=== PATIENT | male | born 1950 | race Caucasian/White ===

== ENCOUNTER 2021-12-17 12:50 | Observation (INO) ==
[~2021-12-17 12:50] MED LIST: Buffered Lidocaine 1% SYRIN 1 ml INTRADERM ONE; Famotidine IV 10 MG/ML 2 ml VIAL (20 mg) IV ONE; Lactated Ringers 1000 ml BAG 1,000 ML IV SCH
[2021-12-17] MEDS ORDERED: fentaNYL 250 mcg/5 ml 50 MCG/ML 5 ml VIAL (250 MCG) ONE (13:10)
[2021-12-17] MEDS ORDERED: Midazolam 2 mg/2 ml VIAL 1 mg/ml 2 ml VIAL (2 mg) ONE (13:10)
[2021-12-17] MEDS ORDERED: Lidocaine 2% PF 5 ML VIAL ONE (13:11)
[2021-12-17] MEDS ORDERED: Lidocaine 1% w EPI 1:200,000 SDV 30 ML VIAL ONE (13:11)
[2021-12-17] MEDS ORDERED: Thrombin 5,000 UNITS 1 APPLIC KIT - topical use - TOPICAL ONE (13:11)
[2021-12-17] MEDS ORDERED: Propofol 10 MG/ML 20 ML BTL ONE (13:11)
[2021-12-17] MEDS ORDERED: Gelfoam Sponge SIZE 100 SPONGE ONE (13:12)
[2021-12-17] MEDS ORDERED: ceFAZolin 2 GM PREMIX 2 GM/50 ML BAG ONE (13:38)
[2021-12-17] MEDS ORDERED: Rocuronium 50 mg VIAL 10 mg/ml 5 ml VIAL (50 mg) ONE (13:40)
[2021-12-17] MEDS ORDERED: Dexamethasone IV 4 MG/ML VIAL 1 ml VIAL ONE (14:34)
[2021-12-17] MEDS ORDERED: Ondansetron 4 mg VIAL 2 MG/ML 2 ml VIAL ONE (14:34)
[2021-12-17] MEDS ORDERED: Acetaminophen IV 1 GM/100ML 1,000 MG/100 ML BAG IV ONE (14:59)
[2021-12-17] MEDS ORDERED: Phenylephrine 40 mcg/mL 10mL (400mcg) SYRINGE ONE (15:01)
[2021-12-17] MEDS ORDERED: Naloxone 0.4 mg VIAL 0.4 mg/ml 1 ml VIAL IV PRN (15:38)
[2021-12-17] MEDS ORDERED: HYDROmorphone 1 MG/1 ML SYRINGE IV PRN (15:38)
[2021-12-17] MEDS ORDERED: Ondansetron 4 mg VIAL 2 MG/ML 2 ml VIAL IV PRN ×2 (15:38→15:58)
[2021-12-17] MEDS ORDERED: fentaNYL 100 mcg/2 ml 50 MCG/ML VIAL IV PRN (15:38)
[2021-12-17] MEDS ORDERED: Magnesium Hydroxide LIQ 30 ML UDC PO PRN (15:58)
[2021-12-17] MEDS ORDERED: Lactated Ringers 1000 ml BAG 1,000 ML IV SCH (16:00)
[2021-12-17] MEDS ORDERED: fentaNYL 100 mcg/2 ml 50 MCG/ML VIAL ONE (16:24)
[2021-12-17] MEDS ORDERED: HYDROmorphone 1 MG/1 ML SYRINGE ONE (16:41)
[2021-12-17] MEDS: HYDROcodone/ACETAMIN 5/325 mg TAB PO PRN (17:47)
[2021-12-18] MEDS: HYDROcodone/ACETAMIN 5/325 mg TAB PO PRN (07:21)
== END 2021-12-18 11:20 | disposition home or self-care (01) ==
LOC: OR 12:50 → SSU 12:50
PROVIDERS: ADMIT Neurological Surgery; ATTEND Neurological Surgery

== ENCOUNTER 2022-01-13 21:18 | Inpatient (IN) ==
[2022-01-13] MEDS ORDERED: Morphine 4 MG/ML VIAL (1 ml) IV ONE ×3 (21:41→23:56)
[2022-01-13 21:53] LABS: ABS Eosinophils 0.2 10^3/ul (0-0.6); ABS Lymphocytes 0.8 10^3/ul (1.0-4.8); ABS Monocytes 0.9 10^3/ul (0-0.8); ABS Neutrophils 7.9 10^3/ul (1.5-7.7); Eosinophil % 2.2 %; Hematocrit 42 % (42-52); Hemoglobin 14.1 g/dL (14.0-18.0); Lymphocyte % 8.2 %; Mean Corpuscular HGB Conc 34 g/dL (31-36); Mean Corpuscular Hemoglobin 35 pg (27-31); Mean Corpuscular Volume 104 fL (80-94); Mean Platelet Volume 6.7 fL (7.4-10.4); Platelet Count 289 10^3/uL (150-450); Red Blood Count 4.04 10^6 /uL (4.18-5.48); Red Cell Distribution Width 14 % (10-15); White Blood Count 9.8 10^3/uL (3.5-10.8)
[2022-01-13] MEDS ORDERED: Ondansetron 4 mg VIAL 2 MG/ML 2 ml VIAL IV ONE (21:55)
[2022-01-13] MEDS ORDERED: Morphine 4 MG/ML VIAL (1 ml) ONE (21:56)
[2022-01-13] MEDS ORDERED: Ondansetron 4 mg VIAL 2 MG/ML 2 ml VIAL ONE (21:56)
[2022-01-13 21:59] LABS: Activated Partial Thrombo Time 29.6 seconds (26.0-38.0); INR 0.97 (0.89-1.11)
[2022-01-13 22:23] LABS: Albumin 4.5 g/dL (3.2-5.2); Albumin/Globulin Ratio 1.6 (1-3); C Reactive Protein 26.3 mg/L (<8.01); Calcium 9.4 mg/dL (8.6-10.3); Globulin 2.8 g/dL (2-4); Potassium 4.1 mmol/L (3.5-5.0); Total Bilirubin 0.6 mg/dL (0.2-1.0); Total Protein 7.3 g/dL (6.4-8.9); eGFR CKD-EPI 98.7 (>60)
[2022-01-13] MEDS ORDERED: Gadoteridol (CONTRAST) 279.3 MG/ML 10 ML IV ONE (22:25)
[2022-01-13 23:23] LABS: Urine Appearance Clear; Urine Bilirubin Negative (Negative); Urine Blood Negative (Negative); Urine Color Yellow; Urine Glucose 3+(>=500 mg/dL) (Negative); Urine Ketones Trace (Negative); Urine Nitrite Negative (Negative); Urine Protein Negative (Negative); Urine Specific Gravity 1.018 (1.002-1.030); Urine Urobilinogen Negative (Negative)
[2022-01-13] MEDS ORDERED: Lactated Ringers 1000 ml BAG 1,000 ML IV ONE (23:56)
[2022-01-14] MEDS ORDERED: Propofol 10 MG/ML 20 ML BTL IV SCH
[2022-01-14] MEDS ORDERED: Midazolam 2 mg/2 ml VIAL 1 mg/ml 2 ml VIAL (2 mg) IV SLOW PU SCH
[2022-01-14] MEDS ORDERED: Thrombin 5,000 UNITS 1 APPLIC KIT - topical use - TOPICAL SCH
[2022-01-14] MEDS ORDERED: Lidocaine 2% PF 5 ML VIAL IV SCH
[2022-01-14] MEDS ORDERED: Rocuronium 50 mg VIAL 10 mg/ml 5 ml VIAL (50 mg) IV SCH
[2022-01-14] MEDS ORDERED: fentaNYL 250 mcg/5 ml 50 MCG/ML 5 ml VIAL (250 MCG) IV SCH
[2022-01-14] MEDS ORDERED: ceFAZolin VIAL VIAL IVPB SCH ×2
[2022-01-14] MEDS ORDERED: Ondansetron 4 mg VIAL 2 MG/ML 2 ml VIAL IV SCH
[2022-01-14] MEDS ORDERED: Lidocaine 2% w EPI 1:100,000 20 ML MDV VIAL INJ SCH
[2022-01-14] MEDS ORDERED: Gelfoam Sponge SIZE 100 SPONGE TOPICAL SCH
[2022-01-14] MEDS ORDERED: Dexamethasone IV 4 MG/ML VIAL 1 ml VIAL IV SLOW PU SCH
[2022-01-14] MEDS ORDERED: Vancomycin 1,500 MG in NS 0.9% 250 ml 250 ML IVPB ONE (00:02)
[2022-01-14] MEDS ORDERED: Ondansetron 4 mg VIAL 2 MG/ML 2 ml VIAL IV PRN (00:16)
[2022-01-14] MEDS ORDERED: Dextrose 50% Syringe 50 ml 25 GM/50 ML SYRINGE IV PUSH PRN (01:28)
[2022-01-14] MEDS ORDERED: cefTRIAXone 2 gm/50 mL D5W 2 GM/50 ML BAG IV SCH (01:30)
[2022-01-14] MEDS: fentaNYL 100 mcg/2 ml 50 MCG/ML VIAL IV SLOW PU PRN ×2 (02:22→18:25)
[2022-01-14] MEDS: ceFAZolin 2 GM in NS PREMIX 2 GM/100 ML BAG IVPB SCH ×2 (15:31→18:26)
[2022-01-15] MEDS: ceFAZolin 2 GM in NS PREMIX 2 GM/100 ML BAG IVPB SCH ×3 (01:46→18:14)
[2022-01-15 07:02] LABS: ABS Lymphocytes 1.4 10^3/ul (1.0-4.8); ABS Monocytes 0.8 10^3/ul (0-0.8); ABS Neutrophils 5.5 10^3/ul (1.5-7.7); Eosinophil % 0.6 %; Hematocrit 33 % (42-52); Hemoglobin 11.2 g/dL (14.0-18.0); Mean Corpuscular HGB Conc 34 g/dL (31-36); Mean Corpuscular Hemoglobin 36 pg (27-31); Mean Corpuscular Volume 105 fL (80-94); Platelet Count 248 10^3/uL (150-450); Red Blood Count 3.14 10^6 /uL (4.18-5.48); Red Cell Distribution Width 14 % (10-15); White Blood Count 7.8 10^3/uL (3.5-10.8)
[2022-01-15 07:20] LABS: Calcium 8.8 mg/dL (8.6-10.3); eGFR CKD-EPI 94.5 (>60)
[2022-01-15] MEDS: fentaNYL 100 mcg/2 ml 50 MCG/ML VIAL IV SLOW PU PRN (16:37)
[2022-01-15] MEDS ORDERED: Polyethylene Glycol 3350 17 GM PACKET PO PRN (17:03)
[2022-01-15] MEDS ORDERED: Magnesium Hydroxide LIQ 30 ML UDC PO PRN (17:03)
[2022-01-15] MEDS ORDERED: Senna TAB 8.6 mg TAB PO PRN (17:03)
[2022-01-16] MEDS: ceFAZolin 2 GM in NS PREMIX 2 GM/100 ML BAG IVPB SCH ×3 (02:19→18:33)
[2022-01-17] MEDS: ceFAZolin 2 GM in NS PREMIX 2 GM/100 ML BAG IVPB SCH ×3 (00:53→18:04)
[2022-01-17 05:56] LABS: ABS Basophils 0.1 10^3/ul (0-0.2); ABS Eosinophils 0.3 10^3/ul (0-0.6); ABS Lymphocytes 1.4 10^3/ul (1.0-4.8); ABS Monocytes 0.5 10^3/ul (0-0.8); ABS Neutrophils 4.3 10^3/ul (1.5-7.7); Eosinophil % 4.6 %; Hematocrit 34 % (42-52); Hemoglobin 11.7 g/dL (14.0-18.0); Lymphocyte % 20.9 %; Mean Corpuscular HGB Conc 34 g/dL (31-36); Mean Corpuscular Hemoglobin 35 pg (27-31); Mean Corpuscular Volume 103 fL (80-94); Mean Platelet Volume 6.8 fL (7.4-10.4); Nucleated Red Blood Cells % 0.1; Platelet Count 231 10^3/uL (150-450); Red Cell Distribution Width 14 % (10-15); White Blood Count 6.5 10^3/uL (3.5-10.8)
[2022-01-17 06:30] LABS: C Reactive Protein 26.8 mg/L (<8.01); Potassium 4.4 mmol/L (3.5-5.0); eGFR CKD-EPI 95.9 (>60)
[2022-01-18] MEDS: ceFAZolin 2 GM in NS PREMIX 2 GM/100 ML BAG IVPB SCH ×3 (03:05→17:05)
[2022-01-19] MEDS: ceFAZolin 2 GM in NS PREMIX 2 GM/100 ML BAG IVPB SCH (03:12)
[2022-01-19 11:13] VITALS: BP 128/84
== END 2022-01-19 12:41 | disposition home or self-care (01) | DRG 857 ==
LOC: ED 21:18 → EDHOLD 01-14 00:16 → SUATTDRO 01-14 00:16 → MED 01-14 15:22
PROVIDERS: ADMIT Student in an Organized Health Care Education/Training Program; ATTEND Hospitalist
PROC: O.NEI&D (2022-01-14 18:30)

== ENCOUNTER 2023-07-15 06:33 | Inpatient (IN) ==
[2023-07-15 06:58] LABS: ABS Basophils 0.1 10^3/uL (0.0-0.1); ABS Eosinophils 0.5 10^3/uL (0.0-0.5); ABS Lymphocytes 1.5 10^3/uL (1.0-4.8); ABS Monocytes 0.6 10^3/uL (0.0-1.1); ABS Neutrophils 5.2 10^3/uL (1.5-7.6); Hematocrit 36.7 % (38-53); Hemoglobin 12.2 g/dL (13.2-16.3); Lymphocyte % 19.1 %; Mean Corpuscular Hemoglobin 28.7 pg (27-33); Mean Corpuscular Hgb Conc 33.2 g/dL (31-36); Mean Corpuscular Volume 86.4 fL (80-97); Mean Platelet Volume 7.3 fL (7.5-11.2); Platelet Count 244 10^3/uL (150-450); Red Blood Count 4.25 10^6/uL (4.06-5.63); Red Cell Distribution Width 16.9 % (12-17); White Blood Count 7.8 10^3/uL (3.6-10.2)
[2023-07-15 07:07] LABS: INR 1.01 (0.83-1.13)
[2023-07-15 07:27] LABS: Albumin 4.2 g/dL (3.2-5.2); Albumin/Globulin Ratio 1.9 (1-3); Calcium 8.9 mg/dL (8.6-10.3); Creatinine, Serum 0.87 mg/dL (0.67-1.17); Globulin 2.2 g/dL (2-4); Potassium 4.2 mmol/L (3.5-5.0); Total Bilirubin 0.3 mg/dL (0.2-1.0); Total Protein 6.4 g/dL (6.4-8.9); eGFR CKD-EPI 92.2 (>60)
[2023-07-15] MEDS: Morphine 4 MG/ML VIAL (1 ml) IV ONE (08:02)
[2023-07-15] MEDS: Ondansetron 4 mg VIAL 2 MG/ML 2 ml VIAL IV ONE (08:02)
[2023-07-15 08:29] LABS: High Sensitivity Troponin 1 Hr 142 pg/mL (<20)
[2023-07-15] MEDS ORDERED: Ondansetron 4 mg VIAL 2 MG/ML 2 ml VIAL IV PRN (08:55)
[2023-07-15] MEDS ORDERED: Heparin 5000 UNITS/ML 1 mL VIAL IV SCH (09:00)
[2023-07-15] MEDS ORDERED: Heparin DRIP 25,000 UNITS BAG 25,000 UNITS/250 ML BAG IV SCH (09:00)
[2023-07-15] MEDS: Heparin 5000 UNITS/ML 1 mL VIAL IV SCH (09:18)
[2023-07-15] MEDS: Heparin DRIP 25,000 UNITS BAG 25,000 UNITS/250 ML BAG IV SCH (09:22)
[2023-07-15 09:34] LABS: ABS Basophils 0.1 10^3/uL (0.0-0.1); ABS Eosinophils 0.2 10^3/uL (0.0-0.5); ABS Lymphocytes 1.2 10^3/uL (1.0-4.8); ABS Monocytes 0.6 10^3/uL (0.0-1.1); ABS Neutrophils 8.1 10^3/uL (1.5-7.6); ABS Nucleated RBC 0.01 10^3/ul; Eosinophil % 1.9 %; Hematocrit 37.1 % (38-53); Hemoglobin 12.4 g/dL (13.2-16.3); Mean Corpuscular Hemoglobin 28.7 pg (27-33); Mean Corpuscular Hgb Conc 33.5 g/dL (31-36); Mean Corpuscular Volume 85.7 fL (80-97); Mean Platelet Volume 7.5 fL (7.5-11.2); Nucleated Red Blood Cells % 0.1 %/100WBC (0.0-0.8); Platelet Count 242 10^3/uL (150-450); Red Blood Count 4.32 10^6/uL (4.06-5.63); Red Cell Distribution Width 16.9 % (12-17); White Blood Count 10.2 10^3/uL (3.6-10.2)
[2023-07-15] MEDS ORDERED: Dextrose 50% Syringe 50 ml 25 GM/50 ML SYRINGE IV PUSH PRN (09:37)
[2023-07-15 09:44] LABS: HDL Cholesterol 28.6 mg/dL
[2023-07-15 10:10] LABS: Creatinine, Serum 0.8 mg/dL (0.67-1.17); eGFR CKD-EPI 94.6 (>60)
[2023-07-15] MEDS: Nitro 2% OINT (Nitroglycerin) 1 INCH/PAK TOPICAL ONE ×2 (10:30→22:42)
[2023-07-15] MEDS: Polyethylene Glycol 3350 17 GM PACKET PO PRN (22:49)
[2023-07-16 04:41] LABS: ABS Basophils 0.1 10^3/uL (0.0-0.1); ABS Eosinophils 0.5 10^3/uL (0.0-0.5); ABS Lymphocytes 2.1 10^3/uL (1.0-4.8); ABS Monocytes 0.7 10^3/uL (0.0-1.1); ABS Neutrophils 5.5 10^3/uL (1.5-7.6); ABS Nucleated RBC 0.01 10^3/ul; Eosinophil % 5.5 %; Hematocrit 35.5 % (38-53); Hemoglobin 11.9 g/dL (13.2-16.3); Lymphocyte % 23.7 %; Mean Corpuscular Hemoglobin 28.8 pg (27-33); Mean Corpuscular Hgb Conc 33.6 g/dL (31-36); Mean Corpuscular Volume 85.9 fL (80-97); Mean Platelet Volume 7.3 fL (7.5-11.2); Nucleated Red Blood Cells % 0.1 %/100WBC (0.0-0.8); Platelet Count 222 10^3/uL (150-450); Red Blood Count 4.13 10^6/uL (4.06-5.63); Red Cell Distribution Width 16.9 % (12-17); White Blood Count 8.8 10^3/uL (3.6-10.2)
[2023-07-16 05:19] LABS: Creatinine, Serum 0.75 mg/dL (0.67-1.17); Magnesium 1.8 mg/dL (1.9-2.7); Potassium 4.2 mmol/L (3.5-5.0); eGFR CKD-EPI 96.5 (>60)
[2023-07-16] MEDS: Magnesium Sulfate 2 gm BAG 2 GM/50 ML BAG IVPB ONE (06:04)
[2023-07-17] MEDS: NS 0.9% 1000 ml BAG 1,000 ML IV SCH (01:29)
[2023-07-17] MEDS: Midazolam 10 mg/10 ml VIAL 1 mg/ml 10 ml VIAL (10 mg) IV SLOW PU ONE (07:59)
[2023-07-17] MEDS: fentaNYL 100 mcg/2 ml 50 MCG/ML VIAL IV SLOW PU ONE (07:59)
[2023-07-17] MEDS ORDERED: Lidocaine 1% MPF 5 ML VIAL ONE (08:10)
[2023-07-17] MEDS ORDERED: Midazolam 5 mg/5 ml VIAL 1 mg/ml 5 ml VIAL (5 mg) ONE (08:10)
[2023-07-17] MEDS ORDERED: Heparin 1,000 UNIT/ML 10 ml (10,000 UNITS) CATHLAB/DIALYSIS ONE (08:10)
[2023-07-17] MEDS ORDERED: VERAPAMIL 2.5 MG/ML 2 ML VIAL ** 5 mg/2 ml ONE (08:10)
[2023-07-17] MEDS ORDERED: fentaNYL 100 mcg/2 ml 50 MCG/ML VIAL ONE (08:10)
[2023-07-17] MEDS ORDERED: nitroGLYCERIN DRIP 25,000 MCG/250 ML BTL ONE (08:11)
[2023-07-17] MEDS ORDERED: Heparin 2 UNITS/ML 1000 mls 2,000 ML IV ONE (08:20)
[2023-07-17] MEDS ORDERED: Iohexol 350 (CONTRAST) 200 ML MDV IV ONE (08:20)
[2023-07-17 09:08] LABS: ABS Basophils 0.1 10^3/uL (0.0-0.1); ABS Eosinophils 0.5 10^3/uL (0.0-0.5); ABS Lymphocytes 1.9 10^3/uL (1.0-4.8); ABS Monocytes 0.7 10^3/uL (0.0-1.1); ABS Neutrophils 3.9 10^3/uL (1.5-7.6); Eosinophil % 6.6 %; Hematocrit 38.5 % (38-53); Hemoglobin 12.7 g/dL (13.2-16.3); Lymphocyte % 27.5 %; Mean Corpuscular Hemoglobin 28.4 pg (27-33); Mean Corpuscular Hgb Conc 32.9 g/dL (31-36); Mean Corpuscular Volume 86.5 fL (80-97); Mean Platelet Volume 8.1 fL (7.5-11.2); Platelet Count 221 10^3/uL (150-450); Red Blood Count 4.45 10^6/uL (4.06-5.63)
[2023-07-17 09:16] LABS: Calcium 8.9 mg/dL (8.6-10.3); Creatinine, Serum 0.84 mg/dL (0.67-1.17); Potassium 4.3 mmol/L (3.5-5.0); eGFR CKD-EPI 93.2 (>60)
[2023-07-17 16:19] VITALS: BP 129/72
== END 2023-07-17 17:45 | disposition short-term general hospital (02) | DRG 282 ==
LOC: ED 06:33 → SUATTDRO 08:55 → EDHOLD 08:55 → MEDTELE 11:11
PROVIDERS: ADMIT Student in an Organized Health Care Education/Training Program; ATTEND Internal Medicine